=== PATIENT | male | born 1985 | race Caucasian/White ===

== ENCOUNTER 2016-10-03 10:25 | Emergency (ER) | payer OTHER ==
[~2016-10-03 10:25] MED LIST: BENA25TA PO; ELIQ2.5T PO; FIRS1SOL3 PO; MESA50SU PR; MULTTAB22 PO; OMEP40CA2 PO; PENT500C PO; TRAM150C5 PO; [UNRECOGNIZED DRUG - CODE] PO; [UNRECOGNIZED DRUG - CODE] PR
--- NOTE | 2016-10-03 11:22 | EDDOCDS ---
Nurse's Notes [facility] Name: Karri Javier Age: 31 yrs Sex: Male : 1985 Arrival Date: 10/03/2016 Time: 10:25 Bed TR7 Private MD: [facility] [place] Diagnosis: Low back pain;Chronic pain syndrome Presentation: 10/03 10:42 Presenting complaint: Patient states: here for refill of Hydrocodone/ Acet 5/325 and kcs Tramadol 50 mg - taking the meds for lower back pain. Adult Sepsis Screening: The patient does not have new or worsening altered mentation. Patient's respiratory rate is less than 22. Systolic blood pressure is greater than 100. Patient has a qSOFA score of 0- Negative Sepsis Screen. Suicide/Homicide risk assessment- the patient denies having any suicidal and/or homicidal ideations and does not present with any other emotional, behavioral or mental health complaints. Status: Patient is not a consumer services consultant or dependent. Transition of care: patient was not received from another setting of care. 10:42 Acuity: AUGUST Level 5 kcs 10:42 Method Of Arrival: Walkin/Carried/Asstd kcs Triage Assessment: 10:47 General: Appears comfortable, well developed, well nourished, well groomed, Behavior is kcs cooperative, pleasant. Pain: Location: low bck Pain currently is 7 out of 10 on a pain scale. Pt Declines HIV testing. Neurological: Level of Consciousness is awake, alert. Respiratory: Airway is patent Respiratory effort is even, unlabored, Respiratory pattern is regular, symmetrical. Derm: Skin is intact, is healthy with good turgor, Skin is dry, Skin is normal. Historical: - Allergies: No known drug Allergies; - Home Meds: 1. tramadol 50 mg oral tab 2 tabs four times a day as needed 2. hydrocodone-acetaminophen 5-325 mg Oral tab 1 tab twice a day 3. mesalamine oral 1200 mg X3 daily oral 4. omeprazole 40 mg Oral cpDR 2 caps once daily - PMHx: Chron's Disease; Chronic Back pain; GERD; - PSHx: lymph node removed from behind right ear; Cystectomy; - Social history: Smoking status: Patient states former smoker of tobacco. No barriers to communication noted, The patient speaks fluent Belarusian. - : The pt / caregiver states he / she is not on anticoagulants. Home medication list is obtained from the patient. - Exposure Risk Screening:: None identified. Vital Signs: 10:27 BP 152 / 92; Pulse 81; Resp 16; Temp 98.8(O); Pulse Ox 99% ; Weight 90.72 kg; Height 71 cmb in. (180.34 cm); Pain 7/10; 10:27 Body Mass Index 27.89 (90.72 kg, 180.34 cm) cmb Vitals: 10:27 Log In Time: October 03, 2016 at 10:25. cmb ED Course: 10:26 Patient visited by Cora Covarrubias. cmb 10:26 [facility] [place] is Private Physician. cmb 10:26 Patient moved to Waiting cmb 10:27 Patient moved to Pre RCE cmb 10:44 Triage Initiated kcs 11:02 [facility]. btw 11:02 Julia Phan MD is Attending Physician. btw 11:02 Patient visited by Christopher Sellers PA. btw 11:02 Patient moved to Triage 2 ar3 11:08 [facility] [place] is Referral Physician. btw 11:16 Patient name changed from Karri\S\\S\Yaya\S\ to Karri\S\Jaylen\S\Yaya. EDMS 11:18 Patient moved to TR7 ar3 Order Results: There are currently no results for this order. Outcome: 11:08 Discharge ordered by Provider. btw 11:21 Patient left the ED. candido Signatures: Dispatcher [employer] EDMS Jane Rao RN RN Janelle Cruz, MIDDLE SCHOOL RESOURCE TEACHER [employer] RESOURCE TEACHER ar3 Christopher Sellers PA PA btw Cora Covarrubias cmb MTDD
--- NOTE | 2016-10-03 11:22 | EDDOCDS ---
Physician Documentation [facility] Name: Karri Javier Age: 31 yrs Sex: Male : 1985 Arrival Date: 10/03/2016 Time: 10:25 Bed TR7 Private MD: [facility] Disposition: 10/03/16 11:08 Discharged to Home/Self Care. Impression: Low back pain, Chronic pain syndrome. - Condition is Stable. - Discharge Instructions: Chronic Back Pain, Medicine Refill at the Emergency Department, Back Pain, Adult, [id number]. - Prescriptions for Diclofenac Sodium 75 mg Oral Tablet, Delayed Release (E.C.) - take 1 tablet by ORAL route 2 times per day; 30 tablet. Tramadol 50 mg Oral Tablet - take 1 tablet by ORAL route 4 times per day As needed MDD: 4 tabs; 12 tablet. Robaxin- 750 750 mg Oral Tablet - take 1 tablet by ORAL route every 6 hours As needed; 40 tablet. - Medication Reconciliation, Local Pharmacy Hours form. - Follow up: [facility]; When: Call to arrange an appointment; Reason: Further diagnostic work-up, Recheck today's complaints, Continuance of care. - Problem is chronic. - Symptoms are unchanged. Historical: - Allergies: No known drug Allergies; - Home Meds: 1. tramadol 50 mg oral tab 2 tabs four times a day as needed 2. hydrocodone-acetaminophen 5-325 mg Oral tab 1 tab twice a day 3. mesalamine oral 1200 mg X3 daily oral 4. omeprazole 40 mg Oral cpDR 2 caps once daily - PMHx: Chron's Disease; Chronic Back pain; GERD; - PSHx: lymph node removed from behind right ear; Cystectomy; - Social history: Smoking status: Patient states former smoker of tobacco. No barriers to communication noted, The patient speaks fluent Jordanian. - : The pt / caregiver states he / she is not on anticoagulants. Home medication list is obtained from the patient. - Exposure Risk Screening:: None identified. Vital Signs: 10/03 10:27 BP 152 / 92; Pulse 81; Resp 16; Temp 98.8(O); Pulse Ox 99% ; Weight 90.72 kg / 200 lbs; cmb Height 71 in. (180.34 cm); Pain 7/10; 10:27 Body Mass Index 27.89 (90.72 kg, 180.34 cm) cmb Signatures: Jane Rao, JUAN FRANCISCO RN kcs Christopher Sellers PA PA btw MTDD
--- NOTE | 2016-10-05 12:21 | EDDOCDS ---
Physician Documentation [facility] Name: Karri Javier Age: 31 yrs Sex: Male : 1985 Arrival Date: 10/03/2016 Time: 10:25 Bed TR7 Private MD: [facility] Disposition: 10/03/16 11:08 Discharged to Home/Self Care. Impression: Low back pain, Chronic pain syndrome. - Condition is Stable. - Discharge Instructions: Chronic Back Pain, Medicine Refill at the Emergency Department, Back Pain, Adult, [id number]. - Prescriptions for Diclofenac Sodium 75 mg Oral Tablet, Delayed Release (E.C.) - take 1 tablet by ORAL route 2 times per day; 30 tablet. Tramadol 50 mg Oral Tablet - take 1 tablet by ORAL route 4 times per day As needed MDD: 4 tabs; 12 tablet. Robaxin- 750 750 mg Oral Tablet - take 1 tablet by ORAL route every 6 hours As needed; 40 tablet. - Medication Reconciliation, Local Pharmacy Hours form. - Follow up: [facility]; When: Call to arrange an appointment; Reason: Further diagnostic work-up, Recheck today's complaints, Continuance of care. - Problem is chronic. - Symptoms are unchanged. Historical: - Allergies: No known drug Allergies; - Home Meds: 1. tramadol 50 mg oral tab 2 tabs four times a day as needed 2. hydrocodone-acetaminophen 5-325 mg Oral tab 1 tab twice a day 3. mesalamine oral 1200 mg X3 daily oral 4. omeprazole 40 mg Oral cpDR 2 caps once daily - PMHx: Chron's Disease; Chronic Back pain; GERD; - PSHx: lymph node removed from behind right ear; Cystectomy; - Social history: Smoking status: Patient states former smoker of tobacco. No barriers to communication noted, The patient speaks fluent Dutch. - Family history: Not pertinent. - : The pt / caregiver states he / she is not on anticoagulants. Home medication list is obtained from the patient. - Exposure Risk Screening:: None identified. Vital Signs: 10/03 10:27 BP 152 / 92; Pulse 81; Resp 16; Temp 98.8(O); Pulse Ox 99% ; Weight 90.72 kg / 200 lbs; cmb Height 71 in. (180.34 cm); Pain 7/10; 10:27 Body Mass Index 27.89 (90.72 kg, 180.34 cm) cmb MDM: 11:23 [facility] Payment Agreement was scanned into [employer] and attached to record. pm4 12:40 T-Sheet-- Draft Copy was scanned into [employer] and attached to record. gb Signatures: Jane Rao RN RN kcs Keyanna Roberts, Reg Reg gb Christopher Sellers PA PA btw Chevy Vazquez, Reg Reg pm4 The chart was reviewed and I authenticate all verbal orders and agree with the evaluation and treatment provided.Corrections: (The following items were deleted from the chart) 11:35 11:32 Family history Not pertinent, candido rey Attachments: 11:23 [facility] Payment Agreement pm4 12:40 T-Sheet-- Draft Copy gb Chart Complete MTDD
--- NOTE | 2016-10-05 12:21 | EDDOCDS ---
Nurse's Notes [facility] Name: Karri Javier Age: 31 yrs Sex: Male : 1985 Arrival Date: 10/03/2016 Time: 10:25 Bed TR7 Private MD: [facility] [place] Diagnosis: Low back pain;Chronic pain syndrome Presentation: 10/03 10:42 Presenting complaint: Patient states: here for refill of Hydrocodone/ Acet 5/325 and kcs Tramadol 50 mg - taking the meds for lower back pain. Adult Sepsis Screening: The patient does not have new or worsening altered mentation. Patient's respiratory rate is less than 22. Systolic blood pressure is greater than 100. Patient has a qSOFA score of 0- Negative Sepsis Screen. Suicide/Homicide risk assessment- the patient denies having any suicidal and/or homicidal ideations and does not present with any other emotional, behavioral or mental health complaints. Status: Patient is not a customer service assistant or dependent. Transition of care: patient was not received from another setting of care. 10:42 Acuity: AUGUST Level 5 kcs 10:42 Method Of Arrival: Walkin/Carried/Asstd kcs Triage Assessment: 10:47 General: Appears comfortable, well developed, well nourished, well groomed, Behavior is kcs cooperative, pleasant. Pain: Location: low bck Pain currently is 7 out of 10 on a pain scale. Pt Declines HIV testing. Neurological: Level of Consciousness is awake, alert. Respiratory: Airway is patent Respiratory effort is even, unlabored, Respiratory pattern is regular, symmetrical. Derm: Skin is intact, is healthy with good turgor, Skin is dry, Skin is normal. Historical: - Allergies: No known drug Allergies; - Home Meds: 1. tramadol 50 mg oral tab 2 tabs four times a day as needed 2. hydrocodone-acetaminophen 5-325 mg Oral tab 1 tab twice a day 3. mesalamine oral 1200 mg X3 daily oral 4. omeprazole 40 mg Oral cpDR 2 caps once daily - PMHx: Chron's Disease; Chronic Back pain; GERD; - PSHx: lymph node removed from behind right ear; Cystectomy; - Social history: Smoking status: Patient states former smoker of tobacco. No barriers to communication noted, The patient speaks fluent Syrian. - Family history: Not pertinent. - : The pt / caregiver states he / she is not on anticoagulants. Home medication list is obtained from the patient. - Exposure Risk Screening:: None identified. Screenin:20 Screening information is obtained from prior medical records. Fall risk: No risks kcs identified. Assistance ADL's: requires no assistance with activities of daily living. Abuse/DV Screen: The patient / caregiver reports he/she is: not in a situation that causes fear, pain or injury. Nutritional screening: No deficits noted. Advance Directives: Currently, there is no health care proxy. There is no living will. home support is adequate. Assessment: 11:20 General: Appears comfortable, well developed, well nourished, well groomed, Behavior is kcs cooperative, pleasant. Pain: Denies pain. Awake, alert, oriented. Skin warm and dry. Moves all extremities. Respirations unlabored. No apparent distress. The patient / caregiver is instructed regarding the plan of care and ED course. Physical assessment to be completed by PA/EDMD. Vital Signs: 10:27 BP 152 / 92; Pulse 81; Resp 16; Temp 98.8(O); Pulse Ox 99% ; Weight 90.72 kg; Height 71 cmb in. (180.34 cm); Pain 7/10; 10:27 Body Mass Index 27.89 (90.72 kg, 180.34 cm) cmb Vitals: 10:27 Log In Time: October 03, 2016 at 10:25. cmb ED Course: 10:26 Patient visited by Cora Covarrubias. cmb 10:26 [facility] is Private Physician. cmb 10:26 Patient moved to Waiting cmb 10:27 Patient moved to Pre RCE cmb 10:44 Triage Initiated kcs 11:02 Christopher Sellers PA is PHCP. btw 11:02 Julia Phan MD is Attending Physician. btw 11:02 Patient visited by Christopher Sellers PA. btw 11:02 Patient moved to Triage 2 ar3 11:08 [facility] is Referral Physician. btw 11:16 Patient name changed from Karri\S\\S\Yaya\S\ to Karri\S\Jaylen\S\Yaya. EDMS 11:18 Patient moved to TR7 ar3 11:20 Patient has correct armband on for positive identification. kcs 11:20 No IV's were initiated during this patient's visit. No procedures done that require kcs assistance. 11:23 [facility] [place] Payment Agreement was scanned into [employer] and attached to record. pm4 12:40 T-Sheet-- Draft Copy was scanned into [employer] and attached to record. gb Order Results: There are currently no results for this order. Outcome: 11:08 Discharge ordered by Provider. btw 11:20 The following High Risk Discharge criteria are identified: None. Discharged to home kcs ambulatory. Condition: stable. Discharge instructions given to patient, Instructed on discharge instructions, follow up and referral plans. medication usage, no driving heavy equipment, no drinking with medication, Demonstrated understanding of instructions, medications, Pt was receptive of discharge instructions/ teaching. No special radiology studies were completed. 11:20 Discharge Assessment: Patient awake, alert and oriented x 3. No cognitive and/or kcs functional deficits noted. Patient verbalized understanding of disposition instructions. Patient awake and alert. patient administered narcotics - no. The following High Risk Discharge criteria are identified: None. Discharged to home ambulatory. Property sent home with patient. 11:21 Patient left the ED. kcs Signatures: Dispatcher [employer] EDMS Jane Rao RN RN kcs Keaynna Roberts, Reg Reg gb Janelle Queen, TEXTILES PRINTER TEXTILES PRINTER ar3 Crhistopher Sellers, BRANT GUO btCora Galeano cmChevy Florentino, Reg Reg pm4 Corrections: (The following items were deleted from the chart) 11:34 11:31 Patient has correct armband on for positive identification. kcs kcs 11:34 11:31 General: Appears comfortable, well developed, well nourished, well groomed, kcs Behavior is cooperative, pleasant, kcs 11:34 11:31 Pain: Denies pain. kcs kcs 11:34 11:31 Awake, alert, oriented. kcs kcs 11:34 11:31 Skin warm and dry. kcs kcs 11:34 11:31 Moves all extremities. kcs kcs 11:34 11:31 Respirations unlabored. kcs kcs 11:34 11:31 No apparent distress. kcs kcs 11:34 11:31 The patient / caregiver is instructed regarding the plan of care and ED course. kcs kcs 11:34 11:31 Physical assessment to be completed by BRANT/EDMD. kcs kcs 11:32 Family history Not pertinent, kcs kcs 11:31 The following High Risk Discharge criteria are identified: None. Discharged to [facility] home ambulatory, kcs 11:31 Condition: stable kcs [facility] 11:31 Discharge instructions given to patient, Instructed on discharge instructions, kcs follow up and referral plans. medication usage, no driving heavy equipment, no drinking with medication, Demonstrated understanding of instructions, medications, Pt was receptive of discharge instructions/ teaching. [facility] 11:31 No special radiology studies were completed kcs kcs Chart Complete MTDD
--- NOTE | 2016-10-05 12:21 | EDDOCDS ---
Physician Documentation [facility] Name: Karri Javier Age: 31 yrs Sex: Male : 1985 Arrival Date: 10/03/2016 Time: 10:25 Bed TR7 Private MD: [facility] Disposition: 10/03/16 11:08 Discharged to Home/Self Care. Impression: Low back pain, Chronic pain syndrome. - Condition is Stable. - Discharge Instructions: Chronic Back Pain, Medicine Refill at the Emergency Department, Back Pain, Adult, [id number]. - Prescriptions for Diclofenac Sodium 75 mg Oral Tablet, Delayed Release (E.C.) - take 1 tablet by ORAL route 2 times per day; 30 tablet. Tramadol 50 mg Oral Tablet - take 1 tablet by ORAL route 4 times per day As needed MDD: 4 tabs; 12 tablet. Robaxin- 750 750 mg Oral Tablet - take 1 tablet by ORAL route every 6 hours As needed; 40 tablet. - Medication Reconciliation, Local Pharmacy Hours form. - Follow up: [facility]; When: Call to arrange an appointment; Reason: Further diagnostic work-up, Recheck today's complaints, Continuance of care. - Problem is chronic. - Symptoms are unchanged. Historical: - Allergies: No known drug Allergies; - Home Meds: 1. tramadol 50 mg oral tab 2 tabs four times a day as needed 2. hydrocodone-acetaminophen 5-325 mg Oral tab 1 tab twice a day 3. mesalamine oral 1200 mg X3 daily oral 4. omeprazole 40 mg Oral cpDR 2 caps once daily - PMHx: Chron's Disease; Chronic Back pain; GERD; - PSHx: lymph node removed from behind right ear; Cystectomy; - Social history: Smoking status: Patient states former smoker of tobacco. No barriers to communication noted, The patient speaks fluent Saudi Arabian. - Family history: Not pertinent. - : The pt / caregiver states he / she is not on anticoagulants. Home medication list is obtained from the patient. - Exposure Risk Screening:: None identified. Vital Signs: 10/03 10:27 BP 152 / 92; Pulse 81; Resp 16; Temp 98.8(O); Pulse Ox 99% ; Weight 90.72 kg / 200 lbs; cmb Height 71 in. (180.34 cm); Pain 7/10; 10:27 Body Mass Index 27.89 (90.72 kg, 180.34 cm) cmb MDM: 11:23 [facility] Payment Agreement was scanned into [employer] and attached to record. pm4 12:40 T-Sheet-- Draft Copy was scanned into [employer] and attached to record. gb Signatures: Jane Rao RN RN kcs Keyanna Roberts, Reg Reg gb Christopher Sellers PA PA btw Chevy Vazquez, Reg Reg pm4 The chart was reviewed and I authenticate all verbal orders and agree with the evaluation and treatment provided.Corrections: (The following items were deleted from the chart) 11:35 11:32 Family history Not pertinent, candido rey Attachments: 11:23 [facility] Payment Agreement pm4 12:40 T-Sheet-- Draft Copy gb Chart Complete MTDD
== END 2016-10-03 11:21 | disposition home or self-care (01) ==
LOC: M ED 10:25
DX: G89.4 Chronic pain syndrome (principal); M54.5 Low back pain; K50.90 Crohn's disease, unspecified, without complications; K21.9 Gastro-esophageal reflux disease without esophagitis; Z79.891 Long term (current) use of opiate analgesic; Z79.899 Other long term (current) drug therapy; Z87.891 Personal history of nicotine dependence

== ENCOUNTER → 2016-10-23 | Outpatient (CLI) | payer OTHER ==
[~2016-10-23] MED LIST changes: -BENA25TA PO; +BENA25TA9 PO; +[UNRECOGNIZED DRUG - CODE] PO; -[UNRECOGNIZED DRUG - CODE] PO; +[UNRECOGNIZED DRUG - CODE] PR; -[UNRECOGNIZED DRUG - CODE] PR
--- NOTE | 2016-10-23 11:00 | REP ---
LEFT SHOULDER SERIES: Three views. HISTORY: Generalized pain. Injury. FINDINGS: The left glenohumeral and acromioclavicular joints are normally aligned. Periarticular soft tissues are unremarkable. IMPRESSION: Negative left shoulder views. Signed by Grady Grayson MD 10/23/2016 01:41 P
== END ==
LOC: M WUC 09:58
PROVIDERS: ATTEND Physician Assistant
DX: M25.512 Pain in left shoulder (principal)